=== PATIENT | female | born 1955 | race Caucasian/White ===

== ENCOUNTER → 2016-08-02 | Outpatient (CLI) | payer MEDICAID ==
[~2016-08-02] MED LIST: ASPI325T80 PO; ATOR20TA9 PO; CLON0.5T20 PO; FLUO40CA2 PO; GABA-826 PO; LEVE10007 PO; LEVO100T5 PO; MELO-190 PO; OMNIPAQUE 350 MG/ML, 75ML BOTTLE ONE; PANT40TA5 PO; PRAM0.125 PO; TRAZ50TA18 PO; VENL150C6 PO; ZONI50CA2 PO
== END | disposition home or self-care (01) ==
LOC: CFH 10:37
PROVIDERS: ATTEND Internal Medicine Pulmonary Disease
DX: J43.8 Other emphysema (principal)
CPT/HCPCS: 71260; Q9967

== ENCOUNTER 2017-04-06 18:42 | Emergency (ER) | payer MEDICAID ==
[~2017-04-06] VITALS: Ht 167.6 cm; Wt 97.7 kg
[~2017-04-06 18:42] MED LIST changes: -MELO-190 PO; +MELO7.5T31 PO; -OMNIPAQUE 350 MG/ML, 75ML BOTTLE ONE
[2017-04-06] MEDS ORDERED: HYDROcodone/APAP 5/325 TABLET ONE (21:00)
[2017-04-06] MEDS ORDERED: HYDROcodone/APAP 5/325 TABLET PO ONE (21:00)
[2017-04-06 21:06] VITALS: BP 134/75
== END 2017-04-06 21:58 | disposition home or self-care (01) ==
LOC: ED 21:46
DX: S82.62XA Displaced fracture of lateral malleolus of left fibula, initial encounter for closed fracture (principal); I10 Essential (primary) hypertension; G43.909 Migraine, unspecified, not intractable, without status migrainosus; J44.9 Chronic obstructive pulmonary disease, unspecified; E66.01 Morbid (severe) obesity due to excess calories; E03.9 Hypothyroidism, unspecified; B18.2 Chronic viral hepatitis C; G62.9 Polyneuropathy, unspecified; X50.1XXA Overexertion from prolonged static or awkward postures, initial encounter; Y93.89 Activity, other specified; Y92.89 Other specified places as the place of occurrence of the external cause; Y99.8 Other external cause status
CPT/HCPCS: 29515; 93970; 99284

== ENCOUNTER 2017-04-18 18:39 | Inpatient (IN) | payer MEDICAID ==
[~2017-04-18] VITALS: Ht 167.6 cm; Wt 100.6 kg
[2017-04-18 19:19] LABS: BASOPHILS # (AUTO) 0.11 x10^3/uL (0-0.1); BASOPHILS % (AUTO) 2 % (0-1); EOSINOPHILS # (AUTO) 0.26 x10^3/uL (0-0.4); EOSINOPHILS % (AUTO) 3 % (1-7); LYMPHOCYTES # (AUTO) 2.53 x10^3/uL (1-3.4); LYMPHOCYTES % (AUTO) 33 % (22-44); MD NO; MEAN CORPUSCULAR HEMOGLOBIN 26.4 pg (27.0-34.8); MEAN CORPUSCULAR VOLUME 82.6 fL (80-100); MEAN PLATELET VOLUME 9.3 fL (7.4-10.4); MONOCYTES # (AUTO) 0.45 x10^3/uL (0.2-0.8); MONOCYTES % (AUTO) 6 % (2-9); NEUTROPHILS # (AUTO) 4.41 x10^3/uL (1.8-6.8); NEUTROPHILS % (AUTO) 57 % (42-75); PLATELET COUNT 268 x10^3/uL (130-400); RED BLOOD COUNT 4.92 x10^6/uL (3.82-5.3); RED CELL DISTRIBUTION WIDTH 17.5 % (9.6-15.2)
[2017-04-18 19:27] LABS: INTERNATIONAL NORMALIZED RATIO 0.94 (0.93-1.1); PROTHROMBIN TIME 9.8 Seconds (9.6-11.5)
[2017-04-18] MEDS ORDERED: OMNIPAQUE 350 MG/ML, 100ML BOTTLE ONE (20:27)
[2017-04-18] MEDS ORDERED: PROP20TA PO (20:42)
[2017-04-18] MEDS ORDERED: SUMA25TA3 NS (20:42)
[2017-04-18] MEDS ORDERED: ROPI12TA2 PO (20:42)
[2017-04-18] MEDS ORDERED: OMEP-110 PO (20:42)
[2017-04-18] MEDS ORDERED: OXYC5CAP2 PO (20:43)
[2017-04-18] MEDS ORDERED: BISACODYL 10 MG SUPP PR PRN (22:00)
[2017-04-18] MEDS ORDERED: ONDANSETRON 2MG/ML, 2ML IVPush PRN (22:00)
[2017-04-18] MEDS: SODIUM CHLORIDE FLUSH 10ML SYR IVF SCH (22:00)
[2017-04-18] MEDS ORDERED: TEMPLATE NON-FORMULARY MED. (Oxycodone Hcl** 5 MG) PO SCH (22:00)
[2017-04-18] MEDS ORDERED: SUMATRIPTAN 25 MG TABLET PO PRN (22:00)
[2017-04-18] MEDS ORDERED: POLYETHYLENE GLYCOL 17 GM PACKET PO PRN (22:00)
[2017-04-18 22:49] LABS: MICROSCOPIC NOT IND
[2017-04-18 22:56] LABS: CULTURE INDICATED? NO
[2017-04-18] MEDS: LEVETIRACETAM 500 MG TABLET PO SCH (23:17)
[2017-04-18] MEDS: OXYcodone IR 5MG TABLET PO PRN (23:17)
[2017-04-18] MEDS: ATORVASTATIN 20 MG TABLET PO SCH (23:17)
[2017-04-18] MEDS: ROPINIROLE 1MG TABLET PO SCH (23:18)
[2017-04-18] MEDS: GABAPENTIN 100 MG CAPSULE PO SCH (23:18)
[2017-04-18] MEDS: ZONISAMIDE 50 MG CAPSULE PO SCH (23:18)
[2017-04-18] MEDS: PROPRANOLOL 20 MG TABLET PO SCH (23:19)
[2017-04-18] MEDS: NICOTINE 14MG/24 HR PATCH.TD24 TD SCH (23:19)
[2017-04-19 01:43] VITALS: BP 130/78
[2017-04-19] MEDS: ACETAMINOPHEN 325 MG TABLET PO PRN (04:30)
[2017-04-19] MEDS: OXYcodone IR 5MG TABLET PO PRN ×3 (04:31→18:05)
[2017-04-19 05:00] LABS: BASOPHILS # (AUTO) 0.03 x10^3/uL (0-0.1); BASOPHILS % (AUTO) 1 % (0-1); EOSINOPHILS # (AUTO) 0.19 x10^3/uL (0-0.4); EOSINOPHILS % (AUTO) 3 % (1-7); LYMPHOCYTES # (AUTO) 2.16 x10^3/uL (1-3.4); LYMPHOCYTES % (AUTO) 30 % (22-44); MD NO; MEAN CORPUSCULAR HEMOGLOBIN 26.3 pg (27.0-34.8); MEAN CORPUSCULAR VOLUME 82.2 fL (80-100); MEAN PLATELET VOLUME 9.4 fL (7.4-10.4); MONOCYTES # (AUTO) 0.54 x10^3/uL (0.2-0.8); MONOCYTES % (AUTO) 7 % (2-9); NEUTROPHILS # (AUTO) 4.36 x10^3/uL (1.8-6.8); NEUTROPHILS % (AUTO) 60 % (42-75); PLATELET COUNT 253 x10^3/uL (130-400); RED BLOOD COUNT 4.76 x10^6/uL (3.82-5.3); RED CELL DISTRIBUTION WIDTH 18.2 % (9.6-15.2)
[2017-04-19 05:05] LABS: ANION GAP 8 mmol/L (5-15); CHLORIDE 110 mmol/L (98-107)
[2017-04-19 05:13] LABS: ALANINE AMINOTRANSFERASE 14 U/L (12-78); ALKALINE PHOSPHATASE 100 U/L (45-117); BILIRUBIN,TOTAL 0.4 mg/dL (0.2-1.0); TOTAL PROTEIN 7.5 g/dL (6.4-8.2); TROPONIN I < 0.015 ng/mL (0.000-0.045)
[2017-04-19] MEDS: LEVOTHYROXINE 175 MCG TABLET PO SCH (05:49)
[2017-04-19] MEDS ORDERED: SUMATRIPTAN 6MG/0.5ML SQ PRN (06:00)
[2017-04-19] MEDS: FLUOXETINE HCL 20 MG CAPSULE PO SCH (08:20)
[2017-04-19] MEDS: ASPIRIN 81 MG TABLET CHEW PO SCH (08:20)
[2017-04-19] MEDS: VENLAFAXINE 75 MG CAP ER PO SCH (08:20)
[2017-04-19] MEDS: PRAMIPEXOLE 0.125MG TABLET PO SCH (08:20)
[2017-04-19 08:21] VITALS: BP 134/87
[2017-04-19] MEDS: PROPRANOLOL 20 MG TABLET PO SCH ×2 (08:21→20:37)
[2017-04-19] MEDS: SENNA/DOCUSATE TABLET PO SCH (09:00)
[2017-04-19] MEDS ORDERED: LORazepam 0.5MG TABLET PO ONE (09:00)
[2017-04-19] MEDS ORDERED: BUTALB/APAP/CAFFEINE 50MG/325MG/40MG PO ONE (11:00)
[2017-04-19] MEDS ORDERED: DIPHENHYDRAMINE 50 MG/ML, 1ML IVPush ONE (11:00)
[2017-04-19] MEDS ORDERED: PROCHLORPERAZINE 5 MG/ML, 2ML IVPush ONE (11:00)
[2017-04-19] MEDS ORDERED: GABAPENTIN 300 MG CAPSULE ONE (11:03)
[2017-04-19] MEDS: GABAPENTIN 100 MG CAPSULE PO SCH ×3 (11:07→20:36)
[2017-04-19] MEDS: LEVETIRACETAM 500 MG TABLET PO SCH ×2 (11:07→20:36)
[2017-04-19] MEDS: SODIUM CHLORIDE FLUSH 10ML SYR IVF SCH ×2 (11:09→20:35)
[2017-04-19 11:18] LABS: TROPONIN I < 0.015 ng/mL (0.000-0.045)
[2017-04-19 14:03] VITALS: BP 153/80
[2017-04-19 19:53] VITALS: BP 129/80
[2017-04-19] MEDS: NICOTINE 14MG/24 HR PATCH.TD24 TD SCH (20:34)
[2017-04-19] MEDS: ROPINIROLE 1MG TABLET PO SCH (20:35)
[2017-04-19] MEDS: ZONISAMIDE 50 MG CAPSULE PO SCH (20:37)
[2017-04-19] MEDS: ATORVASTATIN 20 MG TABLET PO SCH (20:37)
[2017-04-20] MEDS: OXYcodone IR 5MG TABLET PO PRN ×2 (00:19→05:03)
[2017-04-20 00:48] VITALS: BP 132/78
[2017-04-20] MEDS: ACETAMINOPHEN 325 MG TABLET PO PRN (02:04)
[2017-04-20] MEDS: LEVOTHYROXINE 175 MCG TABLET PO SCH (05:03)
[2017-04-20 05:44] LABS: BASOPHILS # (AUTO) 0.12 x10^3/uL (0-0.1); BASOPHILS % (AUTO) 2 % (0-1); EOSINOPHILS # (AUTO) 0.21 x10^3/uL (0-0.4); EOSINOPHILS % (AUTO) 3 % (1-7); LYMPHOCYTES # (AUTO) 2.47 x10^3/uL (1-3.4); LYMPHOCYTES % (AUTO) 35 % (22-44); MD NO; MEAN CORPUSCULAR HEMOGLOBIN 26.5 pg (27.0-34.8); MEAN CORPUSCULAR HGB CONC 32.5 g/dL (32.4-35.8); MEAN CORPUSCULAR VOLUME 81.7 fL (80-100); MEAN PLATELET VOLUME 9.2 fL (7.4-10.4); MONOCYTES # (AUTO) 0.54 x10^3/uL (0.2-0.8); MONOCYTES % (AUTO) 8 % (2-9); NEUTROPHILS # (AUTO) 3.68 x10^3/uL (1.8-6.8); NEUTROPHILS % (AUTO) 53 % (42-75); PLATELET COUNT 243 x10^3/uL (130-400); RED BLOOD COUNT 4.56 x10^6/uL (3.82-5.3); RED CELL DISTRIBUTION WIDTH 17.4 % (9.6-15.2)
[2017-04-20 05:54] LABS: ALBUMIN 2.7 g/dL (3.4-5.0); ANION GAP 7 mmol/L (5-15); CHLORIDE 108 mmol/L (98-107)
[2017-04-20 05:59] LABS: ALANINE AMINOTRANSFERASE 15 U/L (12-78); ALKALINE PHOSPHATASE 101 U/L (45-117); BILIRUBIN,TOTAL 0.3 mg/dL (0.2-1.0); CREATININE 0.79 mg/dL (0.55-1.02); TOTAL PROTEIN 7.2 g/dL (6.4-8.2)
[2017-04-20 06:32] VITALS: BP 119/74
[2017-04-20] MEDS ORDERED: SUMATRIPTAN 6MG/0.5ML SQ ONE (08:00)
[2017-04-20] MEDS: LEVETIRACETAM 500 MG TABLET PO SCH (08:18)
[2017-04-20] MEDS: ASPIRIN 81 MG TABLET CHEW PO SCH (08:19)
[2017-04-20] MEDS: PRAMIPEXOLE 0.125MG TABLET PO SCH (08:19)
[2017-04-20] MEDS: GABAPENTIN 100 MG CAPSULE PO SCH (08:19)
[2017-04-20] MEDS: PROPRANOLOL 20 MG TABLET PO SCH (08:19)
[2017-04-20] MEDS: FLUOXETINE HCL 20 MG CAPSULE PO SCH (08:20)
[2017-04-20] MEDS: VENLAFAXINE 75 MG CAP ER PO SCH (08:20)
[2017-04-20] MEDS: SODIUM CHLORIDE FLUSH 10ML SYR IVF SCH (08:21)
[2017-04-20] MEDS: SENNA/DOCUSATE TABLET PO SCH (08:21)
[2017-04-20] MEDS ORDERED: FLU VACC QS2017-18 (36MOS+) UP/PF 0.5 ML IM-VACC ONE (10:30)
== END 2017-04-20 13:23 | disposition home or self-care (01) | DRG 103 ==
LOC: ED 18:57 → EDIP 21:49 → 4EST 22:13
PROVIDERS: ADMIT Hospitalist; ATTEND Hospitalist
DX: G43.909 Migraine, unspecified, not intractable, without status migrainosus (principal); I69.354 Hemiplegia and hemiparesis following cerebral infarction affecting left non-dominant side; G83.84 Todd's paralysis (postepileptic); E66.01 Morbid (severe) obesity due to excess calories; B18.2 Chronic viral hepatitis C; E03.9 Hypothyroidism, unspecified; F17.210 Nicotine dependence, cigarettes, uncomplicated; F41.9 Anxiety disorder, unspecified; F32.9 Major depressive disorder, single episode, unspecified; G25.81 Restless legs syndrome; G40.909 Epilepsy, unspecified, not intractable, without status epilepticus; G89.29 Other chronic pain; I10 Essential (primary) hypertension; J44.9 Chronic obstructive pulmonary disease, unspecified; K21.9 Gastro-esophageal reflux disease without esophagitis; M17.11 Unilateral primary osteoarthritis, right knee; Z66 Do not resuscitate; Z68.35 Body mass index [BMI] 35.0-35.9, adult; M54.9 Dorsalgia, unspecified
CPT/HCPCS: 36415; 70450; 70496; 70498; 70551; 80047; 80053; 81003; 83735; 84100; 84146; 84443; 84484; 85025; 85610; 85730; 90686; 93005; 93306; 99285; Q9967; J0780; J1200; J3030

== ENCOUNTER 2017-05-28 14:11 | Inpatient (IN) | payer MEDICAID ==
[~2017-05-28] VITALS: Ht 167.6 cm; Wt 101.1 kg
[~2017-05-28 14:11] MED LIST changes: +OMEP-110 PO; +OXYC5CAP2 PO; +PROP20TA PO; +ROPI12TA2 PO; +SUMA25TA3 NS
[2017-05-28] MEDS ORDERED: DIPHENHYDRAMINE 50 MG/ML, 1ML ONE ×2 (14:27→15:00)
[2017-05-28] MEDS ORDERED: METOCLOPRAMIDE 5 MG/ML, 2ML ONE (14:27)
[2017-05-28] MEDS ORDERED: DIPHENHYDRAMINE 50 MG/ML, 1ML IVPush ONE ×2 (14:30→15:00)
[2017-05-28] MEDS ORDERED: METOCLOPRAMIDE 5 MG/ML, 2ML IVPush ONE (14:30)
[2017-05-28 14:47] LABS: BASOPHILS # (AUTO) 0.05 x10^3/uL (0-0.1); BASOPHILS % (AUTO) 1 % (0-1); EOSINOPHILS # (AUTO) 0.26 x10^3/uL (0-0.4); EOSINOPHILS % (AUTO) 4 % (1-7); LYMPHOCYTES # (AUTO) 2.62 x10^3/uL (1-3.4); LYMPHOCYTES % (AUTO) 36 % (22-44); MD NO; MEAN CORPUSCULAR HEMOGLOBIN 25.9 pg (27.0-34.8); MEAN CORPUSCULAR HGB CONC 31.8 g/dL (32.4-35.8); MEAN CORPUSCULAR VOLUME 81.2 fL (80-100); MEAN PLATELET VOLUME 9.2 fL (7.4-10.4); MONOCYTES # (AUTO) 0.61 x10^3/uL (0.2-0.8); MONOCYTES % (AUTO) 8 % (2-9); NEUTROPHILS # (AUTO) 3.77 x10^3/uL (1.8-6.8); NEUTROPHILS % (AUTO) 52 % (42-75); PLATELET COUNT 267 x10^3/uL (130-400); RED BLOOD COUNT 4.63 x10^6/uL (3.82-5.3); RED CELL DISTRIBUTION WIDTH 16.2 % (9.6-15.2)
[2017-05-28 15:02] LABS: PROTHROMBIN TIME 10.3 Seconds (9.6-11.5)
[2017-05-28 15:07] LABS: TROPONIN I < 0.015 ng/mL (0.000-0.045)
[2017-05-28] MEDS ORDERED: LORazepam 2 MG/ML, 1ML ONE (15:18)
[2017-05-28] MEDS ORDERED: LORazepam 2 MG/ML, 1ML IVPush ONE ×2 (15:30)
[2017-05-28] MEDS ORDERED: ONDANSETRON ODT 4 MG PO PRN (17:30)
[2017-05-28] MEDS ORDERED: DOCUSATE 100 MG CAPSULE PO PRN (17:30)
[2017-05-28] MEDS ORDERED: ENALAPRILAT 1.25 MG/ML, 2ML IVPush PRN (17:30)
[2017-05-28] MEDS ORDERED: BISACODYL 10 MG SUPP PR PRN (17:30)
[2017-05-28] MEDS ORDERED: hydrALAzine 20 MG/ML, 1ML IVPush PRN (17:30)
[2017-05-28] MEDS ORDERED: POLYETHYLENE GLYCOL 17 GM PACKET PO PRN (17:30)
[2017-05-28] MEDS ORDERED: ENOXAPARIN 40 MG/0.4 ML ONE (17:54)
[2017-05-28] MEDS: ENOXAPARIN 40 MG/0.4 ML SQ SCH (18:22)
[2017-05-28] MEDS: SODIUM CHLORIDE 0.9% 1,000 ML IV SCH (19:50)
[2017-05-28 20:19] LABS: CULTURE INDICATED? YES; MICROSCOPIC INDICATED
[2017-05-28 20:25] LABS: AMPHETAMINE SCREEN, URINE Negative (Negative); BARBITURATE SCREEN, URINE Negative (Negative); BENZODIAZEPINE SCREEN, URINE Negative (Negative); CANNABINOID SCREEN, URINE Negative (Negative); COCAINE SCREEN, URINE Negative (Negative); METHADONE SCREEN, URINE Negative (Negative); OPIATE SCREEN, URINE Negative (Negative)
[2017-05-28 22:40] VITALS: BP 138/77
[2017-05-29] MEDS: ZONISAMIDE 50 MG CAPSULE PO SCH ×2 (00:09→21:15)
[2017-05-29] MEDS: GABAPENTIN 300 MG CAPSULE PO SCH ×4 (00:10→21:15)
[2017-05-29] MEDS: LEVETIRACETAM 500 MG TABLET PO SCH ×3 (00:10→21:15)
[2017-05-29] MEDS: ATORVASTATIN 20 MG TABLET PO SCH ×2 (00:10→21:00)
[2017-05-29] MEDS: PROPRANOLOL 20 MG TABLET PO SCH ×3 (00:10→21:14)
[2017-05-29 02:00] VITALS: BP 152/88
[2017-05-29 05:21] LABS: BASOPHILS # (AUTO) 0.04 x10^3/uL (0-0.1); BASOPHILS % (AUTO) 1 % (0-1); EOSINOPHILS # (AUTO) 0.18 x10^3/uL (0-0.4); EOSINOPHILS % (AUTO) 3 % (1-7); LYMPHOCYTES # (AUTO) 1.75 x10^3/uL (1-3.4); LYMPHOCYTES % (AUTO) 28 % (22-44); MD NO; MEAN CORPUSCULAR HEMOGLOBIN 26.4 pg (27.0-34.8); MEAN CORPUSCULAR HGB CONC 32.5 g/dL (32.4-35.8); MEAN CORPUSCULAR VOLUME 81.2 fL (80-100); MEAN PLATELET VOLUME 9.4 fL (7.4-10.4); MONOCYTES # (AUTO) 0.45 x10^3/uL (0.2-0.8); MONOCYTES % (AUTO) 7 % (2-9); NEUTROPHILS % (AUTO) 61 % (42-75); PLATELET COUNT 233 x10^3/uL (130-400); RED BLOOD COUNT 4.48 x10^6/uL (3.82-5.3); RED CELL DISTRIBUTION WIDTH 16.4 % (9.6-15.2)
[2017-05-29 05:40] LABS: ANION GAP 5 mmol/L (5-15); CALCIUM 8.2 mg/dL (8.5-10.1); CHLORIDE 112 mmol/L (98-107); CREATININE 0.82 mg/dL (0.55-1.02)
[2017-05-29 06:55] VITALS: BP 152/88
[2017-05-29] MEDS: VENLAFAXINE 75 MG CAP ER PO SCH (08:47)
[2017-05-29] MEDS: SODIUM CHLORIDE 0.9% 1,000 ML IV SCH ×2 (08:47→21:19)
[2017-05-29] MEDS: ASPIRIN 81 MG TABLET EC PO SCH (08:47)
[2017-05-29] MEDS: FLUOXETINE HCL 20 MG CAPSULE PO SCH (08:48)
[2017-05-29] MEDS: LEVOTHYROXINE 175 MCG TABLET PO SCH (08:48)
[2017-05-29] MEDS: NICOTINE 14MG/24 HR PATCH.TD24 TD SCH (09:52)
[2017-05-29] MEDS: ACETAMINOPHEN 325 MG TABLET PO PRN ×2 (10:29→23:23)
[2017-05-29] MEDS: ENOXAPARIN 40 MG/0.4 ML SQ SCH (16:58)
[2017-05-29] MEDS: SUMATRIPTAN 25 MG TABLET PO PRN (16:58)
[2017-05-29 17:42] VITALS: BP 123/77
[2017-05-29 18:31] VITALS: BP 123/77
[2017-05-30 01:37] VITALS: BP 152/77
[2017-05-30 08:23] VITALS: BP 111/73
[2017-05-30] MEDS: PROPRANOLOL 20 MG TABLET PO SCH (08:29)
[2017-05-30] MEDS: ASPIRIN 81 MG TABLET EC PO SCH (08:29)
[2017-05-30] MEDS: VENLAFAXINE 75 MG CAP ER PO SCH (08:30)
[2017-05-30] MEDS: LEVETIRACETAM 500 MG TABLET PO SCH (08:31)
[2017-05-30] MEDS: GABAPENTIN 300 MG CAPSULE PO SCH (08:31)
[2017-05-30] MEDS: FLUOXETINE HCL 20 MG CAPSULE PO SCH (08:31)
[2017-05-30] MEDS: NICOTINE 14MG/24 HR PATCH.TD24 TD SCH (08:32)
[2017-05-30] MEDS: SUMATRIPTAN 25 MG TABLET PO PRN (08:32)
[2017-05-30] MEDS: LEVOTHYROXINE 175 MCG TABLET PO SCH (08:32)
[2017-05-30] MEDS ORDERED: LEVE500T53 PO (11:12)
[2017-05-30] MEDS ORDERED: LAMO25TA5 PO (11:20)
[2017-05-30] MEDS: SODIUM CHLORIDE 0.9% 1,000 ML IV SCH (11:40)
== END 2017-05-30 13:02 | disposition expired | DRG 101 ==
LOC: ED 16:57 → EDIP 16:58 → ED 17:11 → 4EST 22:19 → 4WST 05-29 12:41 → DCLOUNGE 05-30 12:49
PROVIDERS: ADMIT Hospitalist; ATTEND Hospitalist
DX: G40.409 Other generalized epilepsy and epileptic syndromes, not intractable, without status epilepticus (principal); I11.0 Hypertensive heart disease with heart failure; I50.32 Chronic diastolic (congestive) heart failure; E66.01 Morbid (severe) obesity due to excess calories; E03.9 Hypothyroidism, unspecified; F17.210 Nicotine dependence, cigarettes, uncomplicated; F32.9 Major depressive disorder, single episode, unspecified; F41.9 Anxiety disorder, unspecified; G25.81 Restless legs syndrome; G43.909 Migraine, unspecified, not intractable, without status migrainosus; G89.29 Other chronic pain; J44.9 Chronic obstructive pulmonary disease, unspecified; K21.9 Gastro-esophageal reflux disease without esophagitis; M17.11 Unilateral primary osteoarthritis, right knee; G62.9 Polyneuropathy, unspecified; M54.9 Dorsalgia, unspecified; R47.1 Dysarthria and anarthria; B19.20 Unspecified viral hepatitis C without hepatic coma; Z68.36 Body mass index [BMI] 36.0-36.9, adult; Z86.73 Personal history of transient ischemic attack (TIA), and cerebral infarction without residual deficits
CPT/HCPCS: 36415; 70450; 71045; 80047; 80048; 80307; 81001; 84443; 84484; 85025; 85610; 85730; 87086; 93005; 95951; 96372; 96374; 96375; 96376; J1650; J1200; J2060; J2765; J7030

== ENCOUNTER → 2017-12-05 | Outpatient (CLI) | payer MEDICAID ==
[~2017-12-05] MED LIST changes: +LAMO25TA5 PO; +LEVE500T53 PO; +TRAZ-136 PO; -TRAZ50TA18 PO
== END | disposition home or self-care (01) ==
LOC: CFH 14:02
PROVIDERS: ATTEND Registered Nurse
DX: J43.9 Emphysema, unspecified (principal); Z86.73 Personal history of transient ischemic attack (TIA), and cerebral infarction without residual deficits
CPT/HCPCS: 71250